=== PATIENT | male | born 1940 | race Caucasian/White ===

== ENCOUNTER 2024-01-15 10:04 | Day surgery (SDC) | payer MEDICARE, OTHER ==
[2024-01-15] MEDS: Polymyxin B/Trimethoprim 10 ML Bottle EYELF SCH (10:52)
[2024-01-15] MEDS: Brimonidine 0.2% Ophth Soln 5 ML Bottle EYELF SCH (10:57)
[2024-01-15] MEDS: Phenylephrine 2.5% Ophth Soln 2 ML Bot EYELF SCH (11:02)
[2024-01-15] MEDS: Tropicamide 1% Ophth Soln 3 ML Bottle EYELF SCH (11:09)
[2024-01-15] MEDS: Tetracaine HCl/PF 0.5% 4 ML Bottle EYEBOTH SCH (12:00)
[2024-01-15] MEDS ORDERED: Erythromycin Base 0.5% Ophth Oint 1 GM Tube ONE (12:11)
[2024-01-15] MEDS: Lidocaine 1% with EPINEPHrine 1:100,000 20 ML MDV ONE (12:29)
[2024-01-15] MEDS: Lidocaine 1% PF 2 ML SDV INJECT SCH (12:29)
[2024-01-15] MEDS: Cefuroxime 10 MG/ML SYRINGE EYELF SCH (12:49)
[2024-01-15] MEDS: Pilocarpine 4% Ophth Soln 15 ML Bot EYELF SCH (12:51)
== END 2024-01-15 13:02 | disposition home or self-care (01) ==
LOC: JD.SDS 10:04
PROVIDERS: ATTEND Ophthalmology
DX: H25.813 Combined forms of age-related cataract, bilateral (principal); H21.81 Floppy iris syndrome; H21.42 Pupillary membranes, left eye; I10 Essential (primary) hypertension; E78.2 Mixed hyperlipidemia
CPT/HCPCS: A9270-GY; J0697; J3490

== ENCOUNTER 2024-02-05 08:55 | Day surgery (SDC) | payer MEDICARE, OTHER ==
[2024-02-05] MEDS: Polymyxin B/Trimethoprim 10 ML Bottle EYERT SCH (09:59)
[2024-02-05] MEDS: Brimonidine 0.2% Ophth Soln 5 ML Bottle EYERT SCH (10:04)
[2024-02-05] MEDS: Phenylephrine 2.5% Ophth Soln 2 ML Bot EYERT SCH (10:10)
[2024-02-05] MEDS: Tropicamide 1% Ophth Soln 3 ML Bottle EYERT SCH (10:14)
[2024-02-05] MEDS: Tetracaine HCl/PF 0.5% 4 ML Bottle EYEBOTH SCH (10:53)
[2024-02-05] MEDS: Lidocaine 1% PF 2 ML SDV INJECT SCH (11:14)
[2024-02-05] MEDS: Cefuroxime 10 MG/ML SYRINGE EYERT SCH (11:28)
[2024-02-05] MEDS: Pilocarpine 4% Ophth Soln 15 ML Bot EYERT SCH (11:28)
== END 2024-02-05 11:40 | disposition home or self-care (01) ==
LOC: JD.SDS 08:55
PROVIDERS: ATTEND Ophthalmology
DX: H25.811 Combined forms of age-related cataract, right eye (principal); H21.81 Floppy iris syndrome; H21.41 Pupillary membranes, right eye; H52.31 Anisometropia; I10 Essential (primary) hypertension; Z79.899 Other long term (current) drug therapy
CPT/HCPCS: 66982; J0697; A9270-GY; J3490